=== PATIENT | male | born 1995 | race Caucasian/White ===

== ENCOUNTER 2020-08-23 10:58 | Emergency (ER) | payer OTHER, SELFPAY ==
--- NOTE | 2020-08-23 10:56 | ECG_ITS ---
APPROVED REPORT Exam: Resting ECG HR:60 bpm ECG Measurements Heart Rate 60 AXES AL 158 P 37 QRSd 92 QRS 44 QT 402 T 31 QTc 402 Conclusion Normal sinus rhythm Left atrial abnormality Borderline ECG Electronically signed by : Sergio Tsai, 08/23/2020 21:06:34
[2020-08-23 10:58] VITALS: BP 124/81; BP 160/99; PULSE 60; PULSE 67; RESP 13; RESP 16; TEMP 36.9; O2SAT 93; O2SAT 98; BMI 29.1
--- NOTE | 2020-08-23 11:01 | XR_ITS ---
PROCEDURE: XR CHEST 2V CLINICAL HISTORY: cp Chest pain, hypertension COMPARISON: No exams were available for comparison FINDINGS: The cardiomediastinal silhouette and pulmonary vascularity are within normal limits. The lungs are clear without infiltrates, suspicious nodules, or pleural effusions. No acute bony abnormalities. IMPRESSION: No acute findings. Dictated by: Kwaku Andrew MD 08/23/2020 14:40 Kwaku Andrew MD in [place] 08/23/2020 14:40
--- NOTE | 2020-08-23 11:12 | HMH.EDCP ---
ED Disposition Clinical Impression: Atypical chest pain Disposition: Home, Self-Care Condition on Discharge: Fair Instructions: DI for Atypical Chest Pain Additional Instructions: Glad to let you know that we have checked your labs including CBC CMP and cardiac enzymes and they are normal we have also checked chest x-ray as well as EKG and no acute findings are noted please follow-up as needed Time of Disposition: 12:07 - Critical Care Critical Care Time: No Attestation: On , the high probability of a clinically significant, sudden or life threatening deterioration of the following system(s) required my full and direct attention, intervention and personal management. The time I documented below is in addition to time spent performing reported procedures but includes the following listed in this critical care notation. Medical Decision Making - Medical Records Medical records reviewed: Yes: I reviewed the patient's medical records. MR Comment: male here with his mother with a complaint of chest pain for about a week and shortness of breath he has had no exposure to coronavirus he has high functioning autism mom also states that he started new medication prazosin and was wondering if the chest pain is due to it; mom also states he gets anxious easily. Viewed patient's EKG and it shows no acute changes chest x-ray was also reviewed and it shows normal findings labs including CBC CMP and cardiac enzymes are also normal reassurance has been given to the young man as well as his mother; lysed that they are always welcome to return in case of any concerns - Saurabh Inquiry Pt receiving controlled substance: No Vital Signs: 08/23/20 10:58 08/23/20 11:28 08/23/20 11:30 Temperature 98.5 F Temperature Source Oral Pulse Rate [Radial] 60 60 68 Respiratory Rate 13 10 L 17 Blood Pressure [Right Arm] 124/81 124/78 118/79 Blood Pressure Mean [Right Arm] 95 93 92 Blood Pressure Source [Right Arm] Automatic Cuff Automatic Cuff Automatic Cuff Blood Pressure Position [Right Arm] Sitting Sitting Sitting 02 Sat by Pulse Oximetry 93 L 93 L 95 Oxygen Delivery Method Room Air Room Air Room Air - Lab Data Lab results reviewed: Yes: I reviewed the patient's lab results. Lab Results 08/23/20 11:07: Sodium 142, Potassium 4.3, Chloride 103, Carbon Dioxide 26, Anion Gap 17.3 H, BUN 12, Creatinine 1.00, Estimated Creat Clear 156, Estimated GFR 91, Est GFR ( Amer) 110, Glucose 125 H, Calcium 10.3 H, Troponin I < 0.01 08/23/20 11:07: WBC 8.3, RBC 6.00, Hgb 18.0, Hct 54.3 H, MCV 90.5, MCH 30.0, MCHC 33.1, RDW 13.5, Plt Count 419, MPV 8.3, Neut % (Auto) 62.9, Lymph % (Auto) 28.6, Hendry % (Auto) 6.3, Eos % (Auto) 1.8, Baso % (Auto) 0.5, Neut # (Auto) 5.2, Lymph # (Auto) 2.4, Hendry # (Auto) 0.5, Eos # (Auto) 0.2, Baso # (Auto) 0.0 Result diagrams: 08/23/20 11:07 08/23/20 11:07 Orders (Tests/Meds): ORDERS Category Date Time Status CXR 2 view (NOT portable) [XR chest 2V] Stat Exams 08/23/20 11:01 Taken Troponin I Q3H Lab 08/23/20 14:00 Ordered Troponin I Q3H Lab 08/23/20 17:00 Ordered Chest Pain HPI - General Chief Complaint: Chest Pain Stated Complaint: chest pain Time Seen by Provider: 08/23/20 11:00 Mode of Arrival: Ambulatory Source of Information: Patient, Parent(s) Limitations: No Limitations Description of Symptoms (Recalled from ER Triage Doc. by RN): to ed per pvt car with c/o chest pain radiating to back, +sob, +nausea, +diphoresis x 1 week. pt states sob worse with exertion, pain worse when lying flat. denies cough, fever. states started new med 1 month ago mother states called psych sunday and told to stop meds. cpta none - History of Present Illness HPI narrative: male here with his mother with a complaint of chest pain for about a week and shortness of breath he has had no exposure to coronavirus he has high functioning autism mom also states that he started new medication prazosin and wa
--- NOTE | 2020-08-23 11:13 | PC.NURSE ---
pt going to radiology
[2020-08-23 11:20] LABS: Basophils % 0.5 % (0.1-2.0); Eosinophils # 0.2 K/mm3 (0.0-0.4); Eosinophils % 1.8 % (0.1-12.0); Hematocrit 54.3 % (42.0-52.0); Lymphocytes # 2.4 K/mm3 (0.7-4.5); Lymphocytes % 28.6 % (10-50); Mean Corpuscular HGB Conc 33.1 g/dL (31.8-35.4); Mean Corpuscular Volume 90.5 fl (80-94); Mean Platelet Volume 8.3 fl (7.4-10.4); Monocytes # 0.5 K/mm3 (0.1-1.0); Monocytes % 6.3 % (1.7-9.3); Neutrophils # 5.2 K/mm3 (1.8-7.8); Neutrophils % 62.9 % (37.0-80.0); Platelet Count 419 K/mm3 (142-424); Red Cell Distribution Width 13.5 % (11.5-17.5); White Blood Count 8.3 K/mm3 (4.8-10.8)
[2020-08-23 11:21] LABS: Chloride 103 mmol/L (98-107); Potassium 4.3 mmoL/L (3.5-5.1); Sodium 142 mmol/L (136-145)
--- NOTE | 2020-08-23 11:21 | PC.NURSE ---
pt returning to room from radiology
[2020-08-23 11:24] LABS: Blood Urea Nitrogen 12 mg/dl (9-20); Creatinine Clearance Estimated 156 mL/min (50-200); Estimated Glomerular Filt Rate 91 ml/min (>60); GFR (African American) 110 ML/MIN (>60)
[2020-08-23 11:25] LABS: Anion Gap 17.3 mEq/L (5-15); Calcium 10.3 mg/dl (8.4-10.2); Carbon Dioxide 26 mmol/L (22.0-30.0); Glucose 125 mg/dl (74-100)
[2020-08-23 11:28] VITALS: BP 124/78; PULSE 60; RESP 10; O2SAT 93
[2020-08-23 11:30] VITALS: BP 118/79; PULSE 68; RESP 17; O2SAT 95
[2020-08-23 11:43] LABS: Troponin I < 0.01 ng/ml (0.00-0.034)
[2020-08-23 12:00] VITALS: BP 120/83; PULSE 60; RESP 21; O2SAT 95
--- NOTE | 2020-08-23 12:01 | PC.NURSE ---
MD at bedside updating patient
[2020-08-23 12:15] VITALS: BP 120/83; PULSE 61; RESP 18; TEMP 36.9; O2SAT 95
== END 2020-08-23 12:15 | disposition home or self-care (01) ==
PROVIDERS: Emergency Provider Emergency Medicine; PCP Emergency Medicine
DX: R07.89 Other chest pain (principal); F41.8 Other specified anxiety disorders; I10 Essential (primary) hypertension; F84.0 Autistic disorder; Z79.899 Other long term (current) drug therapy
CPT/HCPCS: 71046; 80048; 84484; 85025; 93005; 99284

== ENCOUNTER → 2020-09-22 14:13 | Outpatient (CLI) | payer OTHER, SELFPAY ==
--- NOTE | 2020-09-22 14:14 | CA_ITS ---
APPROVED REPORT EXAM: Comprehensive 2D, Doppler, and color-flow Echocardiogram Sheet Rock Taper Helper: Belgica Galindo RT(R) Ht: 6 ft 0 in Wt: 223lbs BSA: 2.23 BP: 138/92 mmHg Indications: CP, HTN, SOB, GERD 2D Dimensions LVOT 2.08 cm (M/F) 1.5-2.5 M-Mode Dimensions RVDd 2.04 cm (0.9-2.6) LA Diam 3.91 cm (1.9-4.0) LVDd 5.17 cm (3.5-5.7) Ao Diam 2.98 cm (2.0-3.7) LVDs 3.41 cm (3.5-5.7) IVSd 1.08 cm (0.6-1.1) PWd 0.79 cm (0.6-1.1) EF (Teich) 62.60% FS 34.00% EDV (Teich) 127.80 mL ESV (Teich) 47.80 mL LV Diastology E Decel Time 230.00 (160-240 msec) E/A Ratio 1.8 MED E' 10.00 (< 7 cm/sec) E'/MED E' Ratio 8.16 (>14) LAT E' 14.20 (<10 cm/sec) E/LAT E' Ratio 5.75 (>14) Mitral Valve MV E Max Tan. 82.00 (40-130 cm/s) MV A Velocity 46.00 (40-130 cm/s) E/A Ratio 1.79 MV Decel. Time 230.00 (160-240 ms) MV PHT 67.00 ms Left Ventricle Left atrium is normal size, left ventricle is normal size, there is no concentric left ventricular hypertrophy, visually estimated ejection fraction 55% with no regional wall motion abnormality, diastolic parameters are within normal range. Right Ventricle Right atrium and right ventricle are normal size and contractility. Aortic Valve Aortic valve is grossly normal, there is no aortic stenosis or aortic insufficiency. Mitral Valve Mitral valve is grossly normal, there is trace mitral regurgitation. Tricuspid Valve Tricuspid valve grossly normal, there is trace tricuspid regurgitation. Pulmonic Valve Pulmonic valve is poorly visualized. Great Vessels Aortic root is normal size. Pericardium No significant pericardial effusion noted. Conclusion 1. Normal left ventricular size, preserved left ventricular systolic function, visually estimated ejection fraction 55% with no regional wall motion abnormality, diastolic parameters are within normal range. 2. Trace mitral and tricuspid regurgitation. 3. No significant pericardial effusion noted. Electronically signed by : Jass Tinsley, 09/23/2020 12:58:36
== END ==
PROVIDERS: PCP Emergency Medicine; Visit Provider Nurse Practitioner Family
DX: R07.89 Other chest pain (principal)
CPT/HCPCS: 93306

== ENCOUNTER → 2021-01-26 13:36 | Outpatient (CLI) | payer OTHER, SELFPAY ==
--- NOTE | 2021-01-26 13:40 | XR_ITS ---
PROCEDURE: XR KNEE LT 4V CLINICAL INDICATION: LT knee pain COMPARISON: CR [id number] KNEE-4 OR 5 VIEWS-RT from 05/07/2015 CR [id number] KNEE-4 OR 5 VIEWS-LT from 05/07/2015 FINDINGS: No fracture or dislocation. No lytic or blastic change. There is normal mineralization. There are minimal osteoarthritic changes with minimal spurring the intercondylar region of the lateral femoral condyle and of the tibial spine. The joint spaces however are well preserved. Other findings:None. IMPRESSION: Minimal spurring of the intercondylar notch and tibial spine Dictated by: Kwaku Andrew MD 01/26/2021 14:18 Kwaku Andrew MD in [place] 01/26/2021 14:18
== END ==
PROVIDERS: PCP Nurse Practitioner Family; Visit Provider Orthopaedic Surgery
DX: M25.562 Pain in left knee (principal)
CPT/HCPCS: 73564

== ENCOUNTER 2021-02-17 15:00 | Outpatient (RCR) | payer OTHER, SELFPAY ==
--- NOTE | 2021-02-01 14:53 | HMH.PTOPEV ---
PT Outpatient Evaluation Rehab PT Outpatient Evaluation Start: 02/01/21 14:33 Freq: Status: Active Protocol: Document 02/01/21 14:33 JOSEJOAQUÍN (Rec: 02/01/21 14:53 WILFRID [id number]) Electronically Signed By Bunny Monahan, PT 02/01/21 14:33 Outpatient Therapy Subjective History Subjective History Patient is a 25 year old male presenting to outpatient PT with reports of L knee pain. 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 Patient reports previous hx of L knee meniscus repair in 2006. Symptoms have persisted since surgery. Patient reports mulitple patellar subluxations over the past few years. Comorbidities include hx of HTN, depression, L eye sx/blindness. Chief Complaint Pain,Swelling,Weakness Symptom Type Sharp,Burning Symptoms Relieved By Rest/Positioning,Ice,OTC Meds Symptoms Aggravated By Standing,Physical Activity, Walking Prior Functional Limitations Standing,Walking Current Functional Limitations Housework,Standing,Recreation Activity,Walking Symptom Description Constant but Variable Level of pain today (0-10) 6 Pain scale - at its best (0-10) 5 Pain scale - at its worst (0-10) 9 Hip/Knee Eval Gait Observation General Gait Pattern Observation Antalgic Gait,Decrease Weight Bear (L) Palpation Tenderness left Knee Palpation Finding Tenderness Knee Palpation Overall Comment medial joint line/vastus medialis 3/4 MMT bilateral Hip Flexion Strength Grade 4 Good Hip Abduction Strength Grade 4 Good Hip Adduction Strength Grade 4 Good Hip Extension Strength Grade 4 Good Hip External Rotation Strength Grade 4- Good- Hip Internal Rotation Strength Grade 4- Good- Knee Extension Strength Grade 4 Good Knee Flexion Strength Grade 4 Good ROM left Hip ROM Reason Not Measured Within Functional Limits Knee ROM Reason Not Measured Within Functional Limits Special Tests Knee Valgus Stress Test Negative Left Knee Varus Stress Test Negative Left Knee Juanita Test Positive Left Patellar Compression Test Positive Left Outpatient Therapy Assessment Impairments Problems/Impairmments Palpation Tenderness,Impaired Strength,Impaired Walking, Impaired Angel Luis
== END 2021-04-20 14:38 | disposition home or self-care (01) ==
LOC: PT 15:00
PROVIDERS: PCP Nurse Practitioner Family; Visit Provider Orthopaedic Surgery
DX: M22.42 Chondromalacia patellae, left knee (principal); M17.12 Unilateral primary osteoarthritis, left knee
CPT/HCPCS: 97014; 97033; 97035; 97110; 97163; G0283

== ENCOUNTER 2021-06-12 16:39 | Emergency (ER) | payer OTHER, SELFPAY ==
[2021-06-12 17:15] VITALS: BP 125/73; PULSE 87; RESP 18; TEMP 37; O2SAT 96; BMI 32.5
[2021-06-12 17:20] VITALS: BP 125/73; PULSE 87; RESP 18; TEMP 37; O2SAT 96; BMI 32.5
--- NOTE | 2021-06-12 17:39 | HMH.EDUTC ---
[facility] [place] Disposition Clinical Impression: Strep sore throat Otitis media Qualifiers: Otitis media type: suppurative Chronicity: acute Laterality: left Recurrence: non-recurrent Spontaneous tympanic membrane rupture: without spontaneous rupture Qualified Code(s): H66.002 - Acute suppurative otitis media without spontaneous rupture of ear drum, left ear Disposition: Home, Self-Care Condition on Discharge: Good Instructions: DI for Strep Throat, Middle Ear Infection Additional Instructions: Start antibiotic as soon as possible and be sure to take as ordered for full length of time even though he should start feeling better in 24-48 hours. Tylenol or Motrin as needed for pain or fever Encourage fluids, water, Gatorade, Powerade, Pedialyte if /toddler/child Warm compresses often helps when placed over ear Return immediately for new or worsening symptoms no noticeable improvement in 48-72 hours and in 10-14 days to ensure the ears are return to baseline. Follow-up with primary care Start antibiotics today be sure to take it as ordered with the full length of time although you should start feeling better in 24-48 hours. Change toothbrush and toothpaste 24-48 hours after starting antibiotics Tylenol or Motrin as needed for fever or pain Encourage fluids, water, Gatorade, Powerade, try cold fluids, popsicles, ice cream will make it feel better You are contagious for 24 hours. Avoid kissing anyone, no eating or drinking after anyone. You are contagious. Follow-up the ER for new or worsening symptoms or no noticeable improvement over the next 24-48 hours. Follow-up with PCP this week. Prescriptions: Amoxicillin [Amoxicillin 500mg Tab] 500 mg PO BID 10 Days #20 tab Prescription Printed Referrals: Hardeep Rodríguez MD [Primary Care Provider] - Time of Disposition: 17:59 Medical Decision Making - Saurabh Inquiry Pt receiving controlled substance: No Vital Signs: 06/12/21 17:15 06/12/21 17:20 Temperature 98.6 F 98.6 F Temperature Source Oral Oral Pulse Rate [Right] 87 87 Respiratory Rate 18 18 Blood Pressure [Right Arm] 125/73 125/73 Blood Pressure Mean [Right Arm] 90 90 Blood Pressure Source [Right Arm] Automatic Cuff Blood Pressure Position [Right Arm] Sitting 02 Sat by Pulse Oximetry 96 96 Oxygen Delivery Method Room Air Room Air Orders (Tests/Meds): ORDERS Category Date Time Status Covid-19 Nasal PCR ([facility]) Routine Lab 06/12/21 17:33 Ordered [facility] [place] HPI - General Chief complaint: Urgent Treatment Center Stated complaint: ears, congestion Time Seen by Provider: 06/12/21 17:39 Mode of Arrival: Ambulatory Source of Information: Patient Limitations: No Limitations Description of Symptoms (Recalled from Triage Doc. by RN): C/O BILATERAL EAR PAIN X1 WEEK, SORE THROAT STARTING YESTERDAY. - History of Present Illness Provider Complaint: 26 yr old male presents for rt ear pain and sore throat for 2 days. - Related Data Previous Rx's Medication Instructions Recorded escitalopram oxalate 20 mg tablet 20 mg PO DAILY #90 tab 08/26/20 propranolol 10 mg tablet See Rx Instructions .ROUTE 02/24/21 .COMPLEX #180 unspecified famotidine 20 mg tablet 20 mg PO DAILY #30 tab 03/09/21 Amoxicillin [Amoxicillin 500mg Tab] 500 mg PO BID 10 Days #20 tab 06/12/21 Allergies Allergy/AdvReac Type Severity Reaction Status Date / Time No Known Allergies Allergy Verified 01/26/21 14:31 [facility] History - Hepatitis A Screen Attestation statement:: This patient has been screened for Hepatitis A risk factors. I have reviewed the patient's past medical history: Yes Medical History: Reports:: Anxiety, Depression, Hypertension Other Surgeries: Yes: No Previous Surgery Amputation: No Fractures: No - Social History Smoking Status: Never smoker Alcohol Intake: never Substance Use Type: denies use Occupational Status: unemployed Housing: house Household Members: family - Psychiatric History Pschychiatric His
[2021-06-12 17:52] LABS: UTC Strep Screen (Rapid) Positive (Negative)
[2021-06-12 18:01] VITALS: BP 125/73; PULSE 87; RESP 18; TEMP 37; O2SAT 96
--- NOTE | 2021-06-13 10:10 | PC.NURSE ---
PATIENT NOTIFIED OF POSITIVE COVID TEST AT THIS TIME
== END 2021-06-12 18:08 | disposition home or self-care (01) ==
PROVIDERS: Emergency Provider Nurse Practitioner Family; PCP Emergency Medicine
DX: J02.0 Streptococcal pharyngitis (principal); U07.1 COVID-19; H66.002 Acute suppurative otitis media without spontaneous rupture of ear drum, left ear; I10 Essential (primary) hypertension; F41.8 Other specified anxiety disorders
CPT/HCPCS: 87880; 99203; G0463; U0003

== ENCOUNTER → 2021-07-10 16:15 | Outpatient (CLI) | payer OTHER, SELFPAY ==
--- NOTE | 2021-07-10 16:18 | XR_ITS ---
PROCEDURE INFORMATION: Exam: XR Chest Exam date and time: 07/10/2021 4:18 PM Age: 26 years old Clinical indication: Patient HX: Dyspnea after covid. TECHNIQUE: Imaging protocol: XR of the chest. Views: 2 views. COMPARISON: CR XR CHEST 2V 08/23/2020 11:07 AM FINDINGS: Lungs: Unremarkable. No focal consolidation. Pleural spaces: Unremarkable. No pleural effusion. No pneumothorax. Heart/Mediastinum: Unremarkable. No cardiomegaly. Bones/joints: Unremarkable. IMPRESSION: No acute findings.
== END ==
PROVIDERS: PCP Emergency Medicine; Visit Provider Family Medicine
DX: R06.00 Dyspnea, unspecified; R05.9 Cough, unspecified; Z86.16 Personal history of COVID-19
CPT/HCPCS: 71046

== ENCOUNTER → 2021-08-08 13:23 | Outpatient (CLI) | payer OTHER, SELFPAY ==
--- NOTE | 2021-08-08 13:23 | CT_ITS ---
PROCEDURE: CT HEAD/BRAIN WO CON CLINICAL INDICATION: vertigo COMPARISON: No exams were available for comparison TECHNIQUE: Axial images obtained. All CT scans at the facility use one or more dose reduction, viz: automated exposure control, ma/kV adjustment per patient size (including targeted exams where dose is matched to indication, i.e. head), or iterative reconstruction technique. FINDINGS: No midline shift, mass effect, intracranial hemorrhage, hydrocephalus, or extra-axial fluid collection is evident. The calvarium has an unremarkable appearance. There is opacification of the right mastoid sinus. There is mild mucosal thickening of the ethmoid sinuses. Small retention cyst is present in the right sphenoid sinus anteriorly at 4 mm. IMPRESSION: No acute intracranial finding Right mastoid and mild paranasal sinus disease. Dictated by: Kwaku Andrew MD 08/08/2021 17:50 Kwaku Andrew MD in [place] 08/08/2021 17:50
== END ==
PROVIDERS: PCP Emergency Medicine; Visit Provider Family Medicine
DX: R42 Dizziness and giddiness (principal)
CPT/HCPCS: 70450

== ENCOUNTER 2021-10-02 23:25 | Emergency (ER) | payer OTHER, SELFPAY ==
[2021-10-02 23:27] VITALS: BP 121/70; PULSE 109; RESP 20; TEMP 36.8; O2SAT 99; BMI 32.5
--- NOTE | 2021-10-03 00:16 | HMH.EDNVD ---
ED Disposition Clinical Impression: Enteritis due to Norovirus, COVID-19 Disposition: Home, Self-Care Condition on Discharge: Good Instructions: DI for COVID-19 (Suspected or Confirmed ), DI for Norovirus Infection Additional Instructions: fluids and see pcp for follow up Referrals: Hardeep Rodríguez MD [Primary Care Provider] - - Critical Care Critical Care Time: No Attestation: On 10/02/21, the high probability of a clinically significant, sudden or life threatening deterioration of the following system(s) required my full and direct attention, intervention and personal management. The time I documented below is in addition to time spent performing reported procedures but includes the following listed in this critical care notation. Medical Decision Making - Medical Records Medical records reviewed: Yes: I reviewed the patient's medical records. - Saurabh Inquiry Pt receiving controlled substance: No Vital Signs: 10/02/21 23:27 Temperature 98.2 F Temperature Source Oral Pulse Rate [Apical] 109 H Respiratory Rate 20 Blood Pressure [Right Arm] 121/70 Blood Pressure Mean [Right Arm] 87 Blood Pressure Source [Right Arm] Automatic Cuff Blood Pressure Position [Right Arm] Sitting 02 Sat by Pulse Oximetry 99 Oxygen Delivery Method Room Air - Lab Data Lab results reviewed: Yes: I reviewed the patient's lab results. Lab Results 10/03/21 00:11: Stl Aeromonas (PCR) Not detected, Stl C. cayetanensis PCR Not detected, Stool Rotavirus (PCR) Not detected, Stl Adenov F 40/41 PCR Not detected, Stool Astrovirus (PCR) Not detected, Stool Campylobacter PCR Not detected, Stl C.difficile Tox PCR Not detected, Stool Cryptosporidium PCR Not detected, Stl E.coli Shiga Tox PCR Not detected, Stool E coli O157 PCR Not detected, Stl Enterotoxigenic E PCR Not detected, Stool EPEC (PCR) Not detected, Stool EAEC (PCR) Not detected, Stl E. histolytica PCR Not detected, Stool Giardia Lamblia PCR Not detected, Stool Salmonella PCR Not detected, Stool Sapovirus (PCR) Not detected, Stl P. shigelloides PCR Not detected, Stl Shigella/EIEC PCR Not detected, St Y.enterocolitica PCR Not detected, Stool Vibrio (PCR) Not detected, Stl Vibrio cholerae PCR Not detected, Stl Norovirus GI/GII PCR Detected A, SARS-CoV-2 (PCR) Detected A, Influenza A Untype (PCR) Not detected, Influenza Type B (PCR) Not detected 10/03/21 00:11: WBC 9.1, RBC 5.61, Hgb 17.1, Hct 51.9, MCV 92.4, MCH 30.4, MCHC 32.9, RDW 13.6, Plt Count 347, MPV 9.0, Neut % (Auto) 79.8, Lymph % (Auto) 8.8 L, Worth % (Auto) 8.1, Eos % (Auto) 1.4, Baso % (Auto) 1.9, Neut # (Auto) 7.3, Lymph # (Auto) 0.8, Worth # (Auto) 0.7, Eos # (Auto) 0.1, Baso # (Auto) 0.2, ESR 4 10/03/21 00:11: Sodium 135 L, Potassium 3.6, Chloride 98, Carbon Dioxide 24, Anion Gap 16.6 H, BUN 13, Creatinine 1.10, Estimated Creat Clear 157, Estimated GFR 81, Est GFR ( Amer) 98, Glucose 112 H, Calcium 9.8, Total Bilirubin 0.8, AST 41, ALT 56, Alkaline Phosphatase 53, C-Reactive Protein 18.7 H, Total Protein 7.7, Albumin 4.9, Globulin 2.8, Albumin/Globulin Ratio 1.8, Amylase 63, Lipase 96, Procalcitonin 0.247 Result diagrams: 10/03/21 00:11 10/03/21 00:11 Orders (Tests/Meds): ED MEDICATIONS Generic Name Dose Route Start Last Admin Trade Name Freq PRN Reason Stop Dose Admin Sodium Chloride 1,000 mls @ 999 mls/hr 10/03/21 00:30 10/03/21 00:21 Sod Chlor 0.9% 1000ml Bag IV 10/03/21 01:30 999 mls/hr .Q1H1M TATI Administration Discontinued Medications Generic Name Dose Route Start Last Admin Trade Name Freq PRN Reason Stop Dose Admin Iopamidol 75 ml 10/03/21 00:43 10/03/21 00:44 Iopamidol-370 (76%);100ml Bottle IV 10/03/21 00:44 75 ml ONCE ONE Administration Ondansetron HCl 4 mg 10/03/21 00:19 10/03/21 00:21 Ondansetron 4mg/2ml Vial IV 10/03/21 00:20 4 mg ONCE ONE Administration Sodium Chloride 10 ml 10/03/21 00:43 10/03/21 00:44 Sodium Chloride 0.9% 10ml Syr (Rad Only) IV 12
--- NOTE | 2021-10-03 00:18 | CT_ITS ---
PROCEDURE INFORMATION: Exam: CT Abdomen And Pelvis With Contrast Exam date and time: 10/03/2021 12:18 AM Age: 26 years old Clinical indication: Vomiting and other: Diarrhea generalized abdomen pain; Additional info: Abdominal pain diarrhea TECHNIQUE: Imaging protocol: Computed tomography of the abdomen and pelvis with contrast. Total images: 325 Radiation optimization: All CT scans at this facility use at least one of these dose optimization techniques: automated exposure control; mA and/or kV adjustment per patient size (includes targeted exams where dose is matched to clinical indication); or iterative reconstruction. Contrast material: ISOVUE; Contrast volume: 75 ml; Contrast route: IV; COMPARISON: LEAJW/OLT MRI-LOW EXT ANY JOINT W/O-LT 08/25/2016 2:01 PM FINDINGS: Lungs: Visualized lung bases are clear. Heart: Heart size normal. Mediastinal space: The visualized distal esophagus is largely contracted without gross abnormality. Liver: Mild fatty infiltration of the liver. Normal contour. No mass lesions. No intrahepatic biliary ductal dilatation. Gallbladder and bile ducts: Normal. No calcified stones. No ductal dilation. Pancreas: Normal. No inflammatory changes or ductal dilation. Spleen: Normal. No splenomegaly. Adrenal glands: Normal. No adrenal mass. Kidneys and ureters: No acute abnormalities. No hydronephrosis or hydroureter. No urinary tract stones are identified. Stomach and bowel: The stomach is unremarkable. Mildly excessive fluid content in the distal small bowel and moderately excessive fluid content in the colon, consistent with diarrheal state and mild enterocolitis. No small bowel dilatation or transition point suggestive of bowel obstruction was identified. No evidence of perforation or abscess. Appendix: The appendix is normal in caliber and demonstrates no evidence of appendicitis. Intraperitoneal space: No free fluid or air. Vasculature: No acute process. No abdominal aortic aneurysm. Lymph nodes: No adenopathy. Urinary bladder: The urinary bladder is largely contracted without gross abnormality. Reproductive: Mild prostate calcifications. Bones/joints: No acute osseous abnormalities. Soft tissues: Small fatty bilateral inguinal hernias with no asociated bowel herniation or strangulation. IMPRESSION: 1. Findings consistent with mild enterocolitis and diarrheal state. No evidence of bowel obstruction perforation. 2. Small fatty bilateral inguinal hernias with no asociated bowel herniation or strangulation. 3. Mild fatty infiltration of the liver.
[2021-10-03 00:49] LABS: Coronavirus 19, PCR Detected (NotDetected)
[2021-10-03 00:50] LABS: Influenza A, PCR Not Detected (NotDetected); Influenza B, PCR Not Detected (NotDetected)
[2021-10-03 01:37] LABS: Basophils # 0.2 K/mm3 (0-0.2); Basophils % 1.9 % (0.1-2.0); Eosinophils # 0.1 K/mm3 (0.0-0.4); Eosinophils % 1.4 % (0.1-12.0); Hematocrit 51.9 % (42.0-52.0); Hemoglobin 17.1 g/dL (14.1-18.0); Lymphocytes # 0.8 K/mm3 (0.7-4.5); Lymphocytes % 8.8 % (10-50); Mean Corpuscular HGB Conc 32.9 g/dL (31.8-35.4); Mean Corpuscular Hemoglobin 30.4 pg (27.0-31.2); Mean Corpuscular Volume 92.4 fl (80-94); Monocytes # 0.7 K/mm3 (0.1-1.0); Monocytes % 8.1 % (1.7-9.3); Neutrophils # 7.3 K/mm3 (1.8-7.8); Neutrophils % 79.8 % (37.0-80.0); Platelet Count 347 K/mm3 (142-424); Red Blood Count 5.61 M/mm3 (4.60-6.20); Red Cell Distribution Width 13.6 % (11.5-17.5); White Blood Count 9.1 K/mm3 (4.8-10.8)
[2021-10-03 01:43] LABS: Alanine Aminotransferase 56 U/L (12-78); Albumin Level 4.9 g/dl (3.5-5.0); Albumin/Globulin Ratio 1.8 (1.1-1.8); Alkaline Phosphatase 53 U/L (38-126); Amylase 63 U/L (30-110); Anion Gap 16.6 mEq/L (5-15); Aspartate Amino Transferase 41 U/L (17-59); Bilirubin,Total 0.8 mg/dl (0.2-1.3); Blood Urea Nitrogen 13 mg/dl (9-20); Calcium 9.8 mg/dl (8.4-10.2); Carbon Dioxide 24 mmol/L (22.0-30.0); Chloride 98 mmol/L (98-107); Creatinine Clearance Estimated 157 mL/min (50-200); Estimated Glomerular Filt Rate 81 ml/min (>60); GFR (African American) 98 ML/MIN (>60); Globulin 2.8 g/dL (1.3-3.2); Glucose 112 mg/dl (74-100); Lipase 96 U/L (23-300); Potassium 3.6 mmoL/L (3.5-5.1); Sodium 135 mmol/L (136-145); Total Protein,Serum 7.7 g/dl (6.3-8.2)
[2021-10-03 01:48] LABS: C-Reactive Protein 18.7 mg/L (0-4)
[2021-10-03 01:55] LABS: Adenovirus F 40/41, stool Not Detected (NotDetected); Astrovirus Not Detected (NotDetected); Campylobacter Not Detected (NotDetected); Clostridium Difficile A/B, PCR Not Detected (NotDetected); Cryptosporidium Not Detected (NotDetected); Cyclospora Cayetanesis Not Detected (NotDetected); Entamoeba histolytica Not Detected (NotDetected); Enteroaggregative E coli Not Detected (NotDetected); Enteropathogenic E coli Not Detected (NotDetected); Enterotoxigenic E coli Not Detected (NotDetected); Giardia lamblia Not Detected (NotDetected); Plesimonas Shigalloides, PCR Not Detected (NotDetected); Salmonella, PCR Not Detected (NotDetected); Shiga-like toxin E coli Not Detected (NotDetected); Shigella Enterovasive E coli Not Detected (NotDetected); Vibrio Cholerae Not Detected (NotDetected); Vibrio, PCR Not Detected (NotDetected); Yersinia Entercolitica, PCR Not Detected (NotDetected)
[2021-10-03 01:56] LABS: Norovirus Detected (NotDetected); Rotavirus A Not Detected (NotDetected); Sapovirus Not Detected (NotDetected)
[2021-10-03 02:02] LABS: Procalcitonin 0.247 ng/mL (0.0-2.0)
[2021-10-03 02:04] LABS: Erythrocyte Sedimentation Rate 4 mm/hr (0-15)
[2021-10-03 02:12] VITALS: BP 115/71; PULSE 80; RESP 17; TEMP 36.8; O2SAT 98
== END 2021-10-03 02:20 | disposition home or self-care (01) ==
PROVIDERS: Emergency Provider Emergency Medicine; PCP Emergency Medicine
DX: A08.11 Acute gastroenteropathy due to Norwalk agent (principal); U07.1 COVID-19; F41.8 Other specified anxiety disorders
CPT/HCPCS: 74177; 80053; 82150; 83690; 84145; 85025; 85651; 86140; 87507; 96365; 96375; 99283; C9803; J2405; Q9967; U0003; U0005

== ENCOUNTER 2024-02-06 18:00 | Outpatient (CLI) | payer OTHER, SELFPAY ==
[2024-02-06 19:04] LABS: Basophils # 0.1 K/mm3 (0-0.2); Basophils % 0.7 % (0.1-2.0); Eosinophils # 0.3 K/mm3 (0.0-0.4); Eosinophils % 4.8 % (0.1-12.0); Hematocrit 48.8 % (42.0-52.0); Hemoglobin 15.8 g/dL (14.1-18.0); Lymphocytes # 2.2 K/mm3 (0.7-4.5); Lymphocytes % 34.4 % (10-50); Mean Corpuscular HGB Conc 32.4 g/dL (31.8-35.4); Mean Corpuscular Hemoglobin 30.7 pg (27.0-31.2); Mean Corpuscular Volume 94.8 fl (80-94); Mean Platelet Volume 9.9 fl (7.4-10.4); Monocytes # 0.5 K/mm3 (0.1-1.0); Neutrophils # 3.3 K/mm3 (1.8-7.8); Neutrophils % 52.1 % (37.0-80.0); Platelet Count 353 K/mm3 (142-424); Red Blood Count 5.15 M/mm3 (4.60-6.20); Red Cell Distribution Width 13.8 % (11.5-17.5); White Blood Count 6.4 K/mm3 (4.8-10.8)
[2024-02-06 19:51] LABS: Alanine Aminotransferase 50 U/L (12-78); Albumin Level 4.5 g/dl (3.5-5.0); Albumin/Globulin Ratio 1.7 (1.1-1.8); Alkaline Phosphatase 67 U/L (38-126); Anion Gap 14.6 mEq/L (5-15); Aspartate Amino Transferase 38 U/L (17-59); Bilirubin,Total 0.5 mg/dl (0.2-1.3); Blood Urea Nitrogen 10 mg/dl (9-20); Calcium 9.7 mg/dl (8.4-10.2); Carbon Dioxide 24 mmol/L (22.0-30.0); Chloride 107 mmol/L (98-107); Chol/HDL Ratio 7.4 (1-3.5); Cholesterol 253 mg/dl (140-200); Estimated Glomerular Filt Rate 115 ml/min (>60); GFR (African American) 139 ML/MIN (>60); Globulin 2.6 g/dL (1.3-3.2); Glucose 128 mg/dl (74-100); HDL Cholesterol 34 mg/dl (40-60); Potassium 4.6 mmoL/L (3.5-5.1); Sodium 141 mmol/L (136-145); Total Protein,Serum 7.1 g/dl (6.3-8.2); Triglycerides 345 mg/dl (30-150); VLDL Cholesterol 69 mg/dL (0-40)
[2024-02-06 20:08] LABS: 25-OH Vitamin D, Total 21.7 ng/mL (30-100)
[2024-02-06 20:14] LABS: Direct LDL Cholesterol 183.96 mg/dL (100-129)
[2024-02-06 20:19] LABS: Thyroid Stimulating Hormone 1.42 uIU/mL (0.465-4.68)
== END 2024-02-06 23:59 | disposition home or self-care (01) ==
LOC: LAB.DROPOF 02-07 08:42
PROVIDERS: Visit Provider Family Medicine
DX: E66.3 Overweight (principal); Z68.34 Body mass index [BMI] 34.0-34.9, adult; F84.0 Autistic disorder; F84.5 Asperger's syndrome; F32.9 Major depressive disorder, single episode, unspecified; F41.1 Generalized anxiety disorder; R73.03 Prediabetes; R00.2 Palpitations; Z79.899 Other long term (current) drug therapy
CPT/HCPCS: 80053; 80061; 82306; 84443; 85025

== ENCOUNTER 2024-05-02 12:27 | Outpatient (CLI) | payer OTHER, SELFPAY ==
[2024-05-02 18:49] LABS: Alanine Aminotransferase 48 U/L (12-78); Albumin Level 4.5 g/dl (3.5-5.0); Albumin/Globulin Ratio 1.5 (1.1-1.8); Alkaline Phosphatase 72 U/L (38-126); Anion Gap 13.4 mEq/L (5-15); Aspartate Amino Transferase 33 U/L (17-59); Bilirubin,Total 0.6 mg/dl (0.2-1.3); Blood Urea Nitrogen 17 mg/dl (9-20); Calcium 10.4 mg/dl (8.4-10.2); Carbon Dioxide 27 mmol/L (22.0-30.0); Chloride 103 mmol/L (98-107); Chol/HDL Ratio 5.3 (1-3.5); Cholesterol 168 mg/dl (140-200); Estimated Glomerular Filt Rate 100 ml/min (>60); GFR (African American) 121 ML/MIN (>60); Glucose 120 mg/dl (74-100); HDL Cholesterol 32 mg/dl (40-60); Potassium 4.4 mmoL/L (3.5-5.1); Sodium 139 mmol/L (136-145); Total Protein,Serum 7.5 g/dl (6.3-8.2); Triglycerides 217 mg/dl (30-150); VLDL Cholesterol 43 mg/dL (0-40)
[2024-05-02 19:00] LABS: Direct LDL Cholesterol 100.62 mg/dL (100-129)
[2024-05-02 19:19] LABS: Prostate Specific Ag Screen 0.3 ng/ml (0.0-4.0)
== END 2024-05-02 23:59 | disposition home or self-care (01) ==
LOC: LAB.DROPOF 05-05 12:29
PROVIDERS: PCP Family Medicine; Visit Provider Family Medicine
DX: E78.5 Hyperlipidemia, unspecified (principal); N41.0 Acute prostatitis
CPT/HCPCS: 80053; 80061; G0103

== ENCOUNTER 2024-06-23 10:24 | Outpatient (CLI) | payer OTHER, SELFPAY ==
--- NOTE | 2024-06-23 10:24 | XR_ITS ---
FINAL REPORT CLINICAL HISTORY: UTI COMPARISON: None FINDINGS: A single supine view of the abdomen was obtained. There is no prior for comparison. The bowel gas pattern is normal. There are no pathologic calcifications. Osseous structures are within normal limits. IMPRESSION: No radiographic evidence of acute intra-abdominal abnormality. Reviewed, Interpreted and Dictated by Nancy Florez MD Transcribed by Eryn Lerma Authenticated and [facility]
--- NOTE | 2024-06-23 10:24 | US_ITS ---
FINAL REPORT CLINICAL HISTORY: urinary frequency COMPARISON: None FINDINGS: RENAL ULTRASOUND Ultrasound images of the kidneys were obtained. Note is made of fatty infiltration of the liver. The spleen is borderline in size measuring 13.0 cm. The right kidney measures 12.4 cm in length. No hydronephrosis, mass, or stone. The left kidney measures 12.6 cm in length. No hydronephrosis, mass, or stone. IMPRESSION: Morphologically normal kidneys. Reviewed, Interpreted and Dictated by Nancy Florez MD Transcribed by Ellyn Tello Authenticated and [facility] [place] [place]
--- NOTE | 2024-06-23 10:24 | US_ITS ---
FINAL REPORT CLINICAL HISTORY: UTI -- urinary frequency COMPARISON: None FINDINGS: ULTRASOUND BLADDER WITH POST VOID RESIDUAL Bladder volumes were estimated based on 3 dimensional measurements, pre- and postvoid. The bladder is incompletely distended. Prevoid volume is 45 mL. Postvoid imaging demonstrates no significant residual. IMPRESSION: Incompletely distended urinary bladder with no postvoid residual. Reviewed, Interpreted and Dictated by Nancy Florez MD Transcribed by Ellyn Tello Authenticated and [facility]
== END 2024-06-23 23:59 | disposition home or self-care (01) ==
LOC: RAD 10:24
PROVIDERS: PCP Family Medicine; Visit Provider Urology
DX: R35.0 Frequency of micturition (principal); R33.9 Retention of urine, unspecified
CPT/HCPCS: 74018; 76770; 76857

== ENCOUNTER 2025-01-28 10:10 | Outpatient (CLI) | payer OTHER, SELFPAY ==
[2025-01-28 18:20] LABS: Basophils # 0.1 K/mm3 (0-0.2); Basophils % 0.8 % (0.1-2.0); Eosinophils # 0.3 Kmm3 (0.0-0.4); Eosinophils % 4.3 % (0.1-12.0); Hematocrit 45.7 % (42.0-52.0); Hemoglobin 15.8 g/dL (14.1-18.0); Lymphocytes # 3.5 K/mm3 (0.7-4.5); Lymphocytes % 45.4 % (10-50); Mean Corpuscular HGB Conc 34.6 g/dL (31.8-35.4); Mean Corpuscular Hemoglobin 30.6 pg (27.0-31.2); Mean Corpuscular Volume 88.4 fl (80-94); Mean Platelet Volume 10.5 fl (7.4-10.4); Monocytes # 0.7 K/mm3 (0.1-1.0); Monocytes % 8.6 % (1.7-9.3); Neutrophils # 3.2 K/mm3 (1.8-7.8); Neutrophils % 40.6 % (37.0-80.0); Nucleated Red Blood Cells # 0 10^3/uL; Nucleated Red Blood Cells % 0 %; Platelet Count 351 K/mm3 (142-424); Red Blood Count 5.17 M/mm3 (4.60-6.20); Red Cell Distribution Width 12.6 % (11.5-17.5); Red Cell Distribution Width-SD 41.2 fL; White Blood Count 7.8 K/mm3 (4.8-10.8)
[2025-01-28 18:44] LABS: Alanine Aminotransferase 50 U/L (12-78); Albumin Level 4.1 g/dl (3.5-5.0); Albumin/Globulin Ratio 1.5 (1.1-1.8); Alkaline Phosphatase 55 U/L (38-126); Anion Gap 14.2 mEq/L (5-15); Aspartate Amino Transferase 33 U/L (17-59); Bilirubin,Total 0.4 mg/dl (0.2-1.3); Blood Urea Nitrogen 11 mg/dl (9-20); Calcium 9.6 mg/dl (8.4-10.2); Carbon Dioxide 27 mmol/L (22.0-30.0); Chloride 101 mmol/L (98-107); Chol/HDL Ratio 6.2 (1-3.5); Cholesterol 181 mg/dl (140-200); Estimated Glomerular Filt Rate 114 ml/min (>60); GFR (African American) 138 ML/MIN (>60); Globulin 2.8 g/dL (1.3-3.2); Glucose 141 mg/dl (74-100); HDL Cholesterol 29 mg/dl (40-60); Potassium 4.2 mmoL/L (3.5-5.1); Sodium 138 mmol/L (136-145); Total Protein,Serum 6.9 g/dl (6.3-8.2)
[2025-01-28 18:49] LABS: Triglycerides 468 mg/dl (30-150)
[2025-01-28 18:55] LABS: Microalbumin/Creatinine Ratio 6.8
[2025-01-28 19:00] LABS: Direct LDL Cholesterol 99.96 mg/dL (100-129)
[2025-01-28 19:02] LABS: Creatinine,Urine Random 235 mg/dL (Not Estab.)
[2025-01-28 19:09] LABS: 25-OH Vitamin D, Total 30.4 ng/mL (30-100)
[2025-01-28 19:19] LABS: Thyroid Stimulating Hormone 3.56 uIU/mL (0.465-4.68)
[2025-01-28 19:36] LABS: Hemoglobin A1C 6.1 % (4.0-6.0)
== END 2025-01-28 23:59 | disposition home or self-care (01) ==
LOC: LAB.DROPOF 01-29 09:34
PROVIDERS: PCP Family Medicine; Visit Provider Family Medicine
DX: R73.03 Prediabetes (principal); E66.9 Obesity, unspecified; Z68.35 Body mass index [BMI] 35.0-35.9, adult
CPT/HCPCS: 80053; 80061; 82043; 82306; 82570; 83036; 84443; 85025

== ENCOUNTER 2025-02-10 08:08 | Outpatient (CLI) | payer OTHER, SELFPAY ==
--- NOTE | 2025-02-10 08:30 | MR_ITS ---
FINAL REPORT TECHNIQUE: Multiplanar and multisequence imaging of the brain was obtained before and after contrast administration. CLINICAL HISTORY: dizziness, chronic headaches COMPARISON: None FINDINGS: Brain parenchymal: There is no mass effect or midline shift. There are no areas of abnormal signal intensity.The cerebellum and brainstem are without acute abnormality. Ventricles: The ventricles are symmetric in size and configuration without hydrocephalus. Extra-axial spaces: No extra-axial fluid collections. Diffusion imaging: No areas of restricted diffusion to suggest acute infarct. Flow voids: Flow voids within the major intracranial vessels are preserved. Soft tissues: Soft tissues are without acute abnormality. Sinuses: Mild mucoperiosteal thickening in the maxillary and ethmoid sinuses is noted, as well as signal in the right mastoid air cells that may represent fluid or chronic soft tissue thickening. Post contrast imaging: No abnormal enhancement. IMPRESSION: No acute intracranial abnormality and no pathologic contrast enhancement. Reviewed, Interpreted and Dictated by Nancy Florez MD Transcribed by Eryn Lerma Authenticated and [facility]
[2025-02-10] MEDS: GADOTERIDOL INJ 10ML SYRINGE 3 ML IV (09:17)
[2025-02-10] MEDS: SODIUM CHLORIDE 0.9% 10ML SYR (RAD ONLY) 10 ML IV (09:17)
[2025-02-10] MEDS: GADOTERIDOL INJ 20ML SYRINGE 20 ML IV (09:17)
== END 2025-02-10 23:59 | disposition home or self-care (01) ==
LOC: RAD 08:10
PROVIDERS: PCP Family Medicine; Visit Provider Family Medicine
DX: R51.9 Headache, unspecified (principal); G89.29 Other chronic pain; R42 Dizziness and giddiness; R26.89 Other abnormalities of gait and mobility
CPT/HCPCS: 70553; A9576

== ENCOUNTER → 2025-06-16 20:09 | Outpatient (CLI) | payer OTHER, SELFPAY ==
--- OUTSIDE RECORDS SUMMARY | 2025-06-16 20:12 | XMS_ITS | Clinical Summary ---
Author Organization [facility] Address [address] [place] [address] Care Team Providers Care Lasting Machine Operator Bed Name Role Phone Anne Nigel Primary Care Provider Unavailabl e Allergies No known active allergies Medications propranolol (Inderal) 10 MG tabletIndication s:Hypertension Take 10 mg by mouth 2 (two) times a day. Active escitalopram (Lexapro) 10 MG tablet Take 10 mg by mouth 1 (one) time each day. 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 05/09/2021 Hyperopia of left eye 05/09/2021 Myopia of right eye 05/09/2021 History of strabismus surgery 05/09/2021 Family History Medical History Relation Name Comments Blindness Brother Diabetes Maternal Grandmother Relation Name Status Comments Brother Maternal Grandmother Social History Tobacco Use Types Packs/Day Years Used Date Smoking Tobacco: Never Assessed Sex and Gender Information Value Date Recorded Sex Assigned at Not on file Legal Sex Male 10:45 AM EDT Gender Identity Not on file Sexual Orientation Not on file Plan of Treatment Health Maintenance Due Date Last Done Comments [facility]-Depression Screening 1995 [facility]-/Child/Adol SDOH Screenings 1995 [facility]-Varicella Vaccines (1 of 2 - 13+ 2-dose series) 02/13/2008 [facility]- SDOH Screenings 2013 [facility]-Adult SDOH Screenings 2013 [facility]-Hepatitis B Vaccines (1 of 3 - 19+ 3-dose series) 2014 [facility]-DTaP,Tdap,and Td Vaccines (3 - Td or Tdap) 08/31/2018 08/31/2008, 07/02/2007 HPV Vaccines (1 - 3-dose SCDM series) 2022 [id number] Vaccine (1 - 2023- season) 2024 [facility]-Influenza Vaccine (#1) 2025 [facility]-Zoster Vaccines (1 of 2) 2045 [facility]-HIB Vaccines Aged Out No longer e ligible based on patient's age to complete this topic [facility]-Hepatitis A Vaccines Aged Out No longer eligible based on patient's age to complete this topic [facility]-IPV Vaccines Aged Out No longer e ligible based on patient's age to complete this topic [facility]-Pneumococcal Vaccine: Pediatrics (0 to 5 Years) and At-Risk Patients (6 to 49 Years) Aged Out No longer eligible b ased on patient's age to complete this topic [facility]-Rotavirus Vaccines Aged Out No lo nger eligible based on patient's age to complete this topic Insurance [facility] MEDICAID Care Teams Lasting Machine Operator Bed Relationship Specialty Start Date End Date Nigel Rodríguez PCP - General 05/09/21
== END ==
LOC: SL 20:11
PROVIDERS: PCP Family Medicine; Visit Provider Family Medicine
DX: G47.33 Obstructive sleep apnea (adult) (pediatric) (principal); G47.61 Periodic limb movement disorder; R40.0 Somnolence; R53.83 Other fatigue
CPT/HCPCS: 95810

== ENCOUNTER 2025-06-29 09:54 | Outpatient (CLI) | payer OTHER, SELFPAY ==
--- OUTSIDE RECORDS SUMMARY | 2025-06-29 10:13 | XMS_ITS | Clinical Summary ---
Author Organization [facility] Address [address] [place] [address] Care Team Providers Care Information Architect Name Role Phone AnneGus pachecoe Primary Care Provider Unavailabl e Allergies No [...] eye 05/09/2021 Myopia of right eye 05/09/2021 Resolved Problems Problem Noted Date Diagnosed Date Resolved Date History of strabismus surgery 05/09/2021 06/28/2025 Family History Medical History Relation Name Comments [...] Vaccines (1 - 3-dose SCDM series) 2022 [id number] Vaccine (1 - season) 2025 [facility]-Influenza Vaccine (#1) 2025 [facility]-Zoster Vaccines (1 [...] patient's age to complete this topic Insurance LJALDO [id number] [employer] [facility] MEDICAID Care Teams Information Architect Relationship Specialty Start Date End Date Nigel Rodríguez PCP - General 05/09/21
[2025-06-29] MEDS: ALBUTEROL 0.083% 2.5 MG/3 ML NEB IH (10:42)
--- NOTE | 2025-06-29 10:43 | PC.NURSE ---
PFT completed without incident, Albuterol 0.083% given via HHN, per written protocol, Pt tolerated tx well.
== END 2025-06-29 23:59 | disposition home or self-care (01) ==
LOC: RT 09:54
PROVIDERS: PCP Family Medicine; Visit Provider Specialist
DX: J45.909 Unspecified asthma, uncomplicated (principal)
CPT/HCPCS: 94010; 94727; 94729

== ENCOUNTER 2025-08-17 09:58 | Outpatient (RCR) | payer OTHER, SELFPAY ==
--- NOTE | 2025-08-17 11:07 | HMH.PTOPEV ---
PT Evaluation Rehab PT Outpatient Evaluation Start: 08/17/25 10:47 Freq: Status: Active Protocol: Document 08/17/25 10:48 PHORPAPITO (Rec: 08/17/25 11:07 PHORNE [id number]) E-signed By Ramin Godinez, PT Outpatient Therapy Subjective History Subjective History This is the initial PT eval for Gordy Muniz, 30 yowm who presents with c/o vertigo and dizziness x ~ 6 yrs. He reports, I had a really bad case of COVID-19 and a double ear infection and my R ear even bled a little. Since then I've had this dizziness and spinning feeling most of the time. He reports medication he is taking now helps his symptoms significantly, but they are not completely gone. He reports episodes last 30 mins to 3- 4 hours at a time and can happen at any time of day or in any body position. He reports high pitched sounds, increased vibrations, or any type of movement (riding in a car especially) will increase his symptoms. He has significant PMH of Autism/Asperger disorder, depression, anxiety, legally blind with L eye significantly worse than R, chronic sinus issues, and hx of multiple prior COVID-19 infections. MRI of the brain ~ 6 mos ago showed no significant intercranial processes. Chief Complaint Other Symptom Type Other Symptoms Relieved By Prescription Meds Symptoms Aggravated Physical Activity By Prior Functional Balance Limitations Current Functional Recreation Activity,Balance Limitations Symptom Description Intermittent Vertigo Eval Oculomotor Examination Smooth Pursuits: Normal Saccades: Normal Gaze-Evoked Absent Nystagmus: Vergence: Abnormal Comment: Difficult assessment due to pr underlying L eye amblyopia. GEN testing did produce minimal symptoms, but no nystagmus. Vestibular-Ocular Reflex (VOR) VOR Horizontal: Impaired VOR Vertical: Impaired Comment: Increased symptoms with any head movements during VOR testing. Motion Sensitivity Testing Symptoms Provoked By Turning head quickly : Positional Testing Montgomery-Hallpike Right: Negative Montgomery-Hallpike Left: Negative Roll Test Right: Negative Roll Test Left: Negative Gait Assessment Assistive Device: None Gait Quality Normal Outpatient Therapy Assessment Impairments Problems/ Impaired Driving,Impaired Household Care,Impaired Impairmments Recreational Activities,Impaired Balance,Impaired Self Care/Self Management Prognosis Rehab Potential Innapropriate for Skilled Therapy Comment Currently there is no need for skilled outpatient therapy services due to the complex nature of patient dizziness and vertigo. He was instructed in a home program for habituation exercises he could try to decrease some of his symptoms. Clinical Impression Consistent with Yes Diagnosis PT Patient Goals PT Patient Goals PT Short Term No goals needed at this time. Patient Goals Outpatient Therapy Plan of Care Treatment Plan May Include Eval/Re-Eval Yes Frequency Times per week 0 Duration Number of Weeks 0 Addendums This patient is a No candidate for social or vocational rehab ? Patient/Guardian Yes verbally acknowledges understanding of treatment program and consents to further treatment? Patient/Guardian Yes verbally acknowledges understanding of diagnosis, prognosis and goals for treatment? Eval Complexity PT Charges 87427 - High Complexity Shoulder/Elbow Eval Shoulder Objective Measurements Elbow Objective Measurements PHYSICIAN CERTIFICATION: I certify the specified therapy services for Gordy Muniz are required, authorized, and reviewed every 30 days.
== END 2025-08-17 23:59 | disposition home or self-care (01) ==
LOC: PT 09:58
PROVIDERS: PCP Family Medicine; Visit Provider Specialist
DX: R42 Dizziness and giddiness (principal)
CPT/HCPCS: 97163

== ENCOUNTER 2025-08-20 15:33 | Emergency (ER) | payer OTHER, SELFPAY ==
[2025-08-20] VITALS (7 sets, daily range): BP systolic 135–157; BP diastolic 80–92; PULSE 60–65; RESP 18; TEMP 36.6; O2SAT 95–97; BMI 36.9
--- OUTSIDE RECORDS SUMMARY | 2025-08-20 16:08 | XMS_ITS | Clinical Summary ---
Author Organization [facility] Address [address] [place] [address] Care Team Providers Care Gusset Ripper Name Role Phone AnneGus pachecoe Primary Care [...] Date Last Done Comments [facility]-Depression Screening 1995 [facility]-Infant/Child/Adol SDOH Screenings 1995 [facility]-Varicella Vaccines (1 of 2 - 13+ 2-dose series) 02/13/2008 [facility]- SDOH Screenings 2013 [facility]-Adult SDOH Screenings 2013 [facility]-Hepatitis B Vaccines (1 of 3 - 19+ 3-dose series) 2014 [facility]-DTaP,Tdap,and Td Vaccines (3 - Td or Tdap) 08/31/2018 08/31/2008, 07/02/2007 HPV Vaccines (1 - 3-dose SCDM series) 2022 [id number] Vaccine (1 - season) 2025 [facility]-Influenza Vaccine [...] age to complete this topic Insurance LJALDO [id number] [employer] [facility] MEDICAID Care Teams Gusset Ripper Relationship Specialty Start Date End Date Nigel Rodríguez PCP - General 05/09/21
--- NOTE | 2025-08-20 16:10 | HMH.EDGENADL ---
Discharge Plan Disposition Patient Disposition: Home, Self-Care Condition: Good Prescriptions Prescriptions: No Action atorvastatin 10 mg tablet See Rx Instructions .ROUTE .COMPLEX Qty: 90 3RF Dose Instruction: TAKE 1 TABLET BY MOUTH AT BEDTIME NIGHTLY FOR ELEVATED CHOLESTEROL Rx Instructions: TAKE 1 TABLET BY MOUTH AT BEDTIME NIGHTLY FOR ELEVATED CHOLESTEROL escitalopram oxalate 20 mg tablet See Rx Instructions .ROUTE .COMPLEX Qty: 90 1RF Dose Instruction: TAKE 1 TABLET BY MOUTH ONCE DAILY Rx Instructions: TAKE 1 TABLET BY MOUTH ONCE DAILY rizatriptan 10 mg tablet,disintegrating See Rx Instructions PO .COMPLEX Qty: 10 2RF Rx Instructions: take 1 tab at onset of headache; if no relief may repeat 1 tab after at least 2 hrs; max = 4 per week tamsulosin 0.4 mg capsule See Rx Instructions .ROUTE .COMPLEX Qty: 90 1RF Dose Instruction: TAKE 1 CAPSULE BY MOUTH ONCE DAILY Rx Instructions: TAKE 1 CAPSULE BY MOUTH ONCE DAILY celecoxib 200 mg capsule See Rx Instructions .ROUTE .COMPLEX Qty: 30 1RF Dose Instruction: TAKE 1 CAPSULE BY MOUTH ONCE DAILY NEEDED FOR PAIN Rx Instructions: TAKE 1 CAPSULE BY MOUTH ONCE DAILY NEEDED FOR PAIN ergocalciferol (vitamin D2) [Vitamin D2] 1,250 mcg (50,000 unit) capsule See Rx Instructions .ROUTE .COMPLEX Qty: 12 0RF Dose Instruction: TAKE 1 CAPSULE BY MOUTH ONCE WEEKLY FOR VITAMIN DEFICEINCY Rx Instructions: TAKE 1 CAPSULE BY MOUTH ONCE WEEKLY FOR VITAMIN DEFICEINCY propranolol 40 mg tablet See Rx Instructions .ROUTE .COMPLEX Qty: 60 1RF Dose Instruction: TAKE 1 TABLET BY MOUTH TWICE DAILY Rx Instructions: TAKE 1 TABLET BY MOUTH TWICE DAILY metformin 500 mg tablet See Rx Instructions .ROUTE .COMPLEX Qty: 90 1RF Dose Instruction: TAKE 1 TABLET BY MOUTH ONCE DAILY Rx Instructions: TAKE 1 TABLET BY MOUTH ONCE DAILY meclizine 25 mg tablet,chewable See Rx Instructions .ROUTE .COMPLEX Qty: 120 0RF Dose Instruction: TAKE TWO (2) TABLETS BY MOUTH TWICE DAILY NEEDED FOR DIZZINESS Rx Instructions: TAKE TWO (2) TABLETS BY MOUTH TWICE DAILY NEEDED FOR DIZZINESS Referrals Follow up/Referrals: Adri Weir APRN [Primary Care Provider, Family Practice] - See instructions Activity Restrictions/Add. Instructions Additional Instructions/Restrictions: You have mild pancreatitis which will resolve on its own. You can take Tylenol and Motrin in addition to the Bentyl which I have sent to. You do have some inflamed lymph nodes in your abdomen which you should follow-up with your primary care provider for. Return to the ER for any acute or worsening symptoms. Clinical Impressions Clinical Impression: Pancreatitis, Enteritis, Acute mesenteric lymphadenitis Instructions Patient Instructions: DI for Acute Abdominal Pain Print Language Print Language: Wallisian Discharge ED Provider: Hali Adan General Adult HPI General Chief complaint: Abdominal Pain Stated complaint: abdominal pain Time Seen by Provider: 08/20/25 16:07 History of Present Illness HPI narrative: Patient is a 30-year-old male with no significant past medical history who presented to the emergency department with abdominal pain. Patient states that his symptoms are in his upper abdomen but does radiate into his lower abdomen. Patient states that his symptoms started today. Patient reports nausea but no vomiting. Patient denies any diarrhea. Patient denies any fevers. Patient has not had any chest pain or shortness of breath. Patient has not had any upper respiratory symptoms. Patient denies any abdominal surgeries. Patient does not drink any alcohol or do any drugs. Related Data Previous Rx's ?Medication ?Instructions ?Recorded atorvastatin 10 mg tablet See Rx Instructions .Route 05/04/25 .COMPLEX #90 ea escitalopram oxalate 20 mg tablet See Rx Instructions .Route 05/04/25 .COMPLEX #90 tabs rizatriptan 10 mg disintegrating See Rx Instructions PO .COMPLEX 06/10/25 tablet #10 tabs tamsulosin 0.4 mg capsule See Rx Instructions .Route 06/29/25 .COMPLEX #90 caps celecoxib 200 mg capsule See Rx Instructions .Route 07/20/25 .COMPLEX #30 caps ergocalciferol (vitamin D2) 1,250 See Rx Instructions .Route 07/20/25 mcg (50,000 unit) capsule (Vitamin .COMPLEX #12 caps D2) propranolol 40 mg tablet See Rx Instructions .Route 07/23/25 .COMPLEX #60 tabs metformin 500 mg tablet See Rx Instructions .Route 07/29/25 .COMPLEX #90 tabs meclizine 25 mg chewable tablet See Rx Instructions .Route 08/05/25 .COMPLEX #120 tabs Allergies Allergy/AdvReac Type Severity Reaction Status Date / Time No Known Allergies Allergy Verified 08/18/25 13:37 [facility] Disclaimer: The information contained in this section may have been updated after the patient was seen, as this information can be updated by other users. Medical History Legally blind Congenital exophoria OS, legally blind. History of multiple eye surgeries in the past Hyperglycemia A1c hemoglobin 6.2 Asperger syndrome Depression Cat bite of finger Atypical chest pain Enteritis due to Norovirus COVID-19 Strep sore throat Otitis media Major depressive disorder Generalized anxiety disorder Legally blind in left eye, as defined in [place] Surgical History History of eye surgery on the left eye History of left knee surgery Family History Mother FHx: mental illness -depression Substance abuse Aneurysm Sister FHx: mental illness -bipolar Substance abuse Father Alcoholism Brother FHx: mental illness -schizophrenia -anger Grandmother Aneurysm Diabetes Social History Smoking Status: Never smoker second hand exposure: No alcohol intake: current alcohol intake frequency: holidays/special occasions only counseling given: No substance use type: denies use counseling given: No current occupational status: unemployed Travel in the last 8 weeks?: None adopted: No caregiver/support person: No foster care: No household members: family housing: house lives independently: No marital status: single number of children: 0 number of grandchildren: 0 education level: high school Hx Recent Travel: No sexually active: No caffeine: Yes physical activity: none lorri/sikhism: None special lorri needs: No working smoke detector in home: Yes fire extinguisher in home: No carbon monox detector in home: No firearms in home: Yes firearms unloaded and locked: Yes do you feel safe at home: Yes victim of physical abuse: No victim of emotional abuse: No victim of sexual abuse: No would you like helpful sources: No Have you lived/traveled outside [place] in past 30 days?: No Contact w/someone who lives/traveled outside US past 30 days?: No Exposure to someone with infectious disease in past 14 days?: No Do you have a fever (greater than 100.4 F or 38 C)?: No Have you tested positive for COVID-19?: No Exposed to someone with COVID-19 in past 14 days?: No Do you have a sore throat?: No Do you have a cough?: No Do you have any weakness?: No Do you have any diarrhea?: No Are you experiencing any unusual bleeding?: No Do you have any muscle aches/pain?: No Do you have any abdominal pain?: No Are you experiencing loss of taste or smell?: No Other Medical History Have you received the Flu Vaccine for this season: No Have you received the Pneumonia Vaccine: No ROS Obtained: Yes All systems reviewed & no additional complaints except as documented and Yes Systems reviewed as appropriate & no additional complaints except as documented Physical Exam General General appearance: alert and in no apparent distress Head Head exam: atraumatic, normocephalic and normal inspection Eye Eye exam: Present normal appearance, PERRL and EOMI; Absent scleral icterus ENT ENT exam: Present normal exam and normal external ear exam Neck Neck exam: Present normal inspection and full ROM Chest Chest inspection: Present normal inspection and symmetric chest wall rise Respiratory Respiratory exam: Present normal lung sounds bilaterally; Absent respiratory distress or wheezes Cardiovascular Cardiovascular exam: Present regular rate, normal rhythm and normal heart sounds Abdominal Exam Abdominal exam: Present soft, distention and tenderness (epigastric tenderness); Absent guarding or rebound Extremities Exam Extremities exam: Present normal inspection and full ROM Back Exam Back exam: Present normal inspection and full ROM Neurological Exam Neurological exam: Present alert and oriented X3 Psychiatric Psychiatric exam: Present normal affect and normal mood Skin Skin exam: Present warm and dry Medical Decision Making Medical Records Medical records reviewed: Yes I reviewed the patient's medical records. Screening: Per USPSTF and CDC recommendations, given the prevalence of disease in our region, it is our hospital?s policy to screen for HIV and viral Hepatitis for all patients aged 18 and over and those with ongoing risk factors. Saurabh Inquiry Pt receiving controlled substance: No Vital Signs: 08/20/25 16:00 08/20/25 16:00 08/20/25 16:30 Temperature 97.9 F 97.9 F Temperature Source Oral Oral Pulse Rate 60 Pulse Rate [Right] 60 Respiratory Rate 18 18 Blood Pressure 157/86 H 156/85 H Blood Pressure [Right Arm] 157/86 H Blood Pressure Mean 106 Blood Pressure Mean [Right Arm] 109 Blood Pressure Source Automatic Cuff Blood Pressure Source [Right Arm] Automatic Cuff Blood Pressure Position Supine Blood Pressure Position [Right Arm] Supine 02 Sat by Pulse Oximetry 95 95 Oxygen Delivery Method Room Air Room Air 08/20/25 16:53 08/20/25 17:01 08/20/25 17:30 Temperature Temperature Source Pulse Rate Pulse Rate [Right] Respiratory Rate Blood Pressure 152/92 H 144/81 H 156/80 H Blood Pressure [Right Arm] Blood Pressure Mean 116 110 105 Blood Pressure Mean [Right Arm] Blood Pressure Source Blood Pressure Source [Right Arm] Blood Pressure Position Blood Pressure Position [Right Arm] 02 Sat by Pulse Oximetry Oxygen Delivery Method 08/20/25 18:01 08/20/25 19:03 Temperature 98 F Temperature Source Oral Pulse Rate 65 Pulse Rate [Right] Respiratory Rate 18 Blood Pressure 135/85 149/87 H Blood Pressure [Right Arm] Blood Pressure Mean 98 Blood Pressure Mean [Right Arm] Blood Pressure Source Automatic Cuff Blood Pressure Source [Right Arm] Blood Pressure Position Supine Blood Pressure Position [Right Arm] 02 Sat by Pulse Oximetry Oxygen Delivery Method Room Air Lab Data Lab results reviewed: Yes I reviewed the patient's lab results. Lab Results 08/20/25 16:18: WBC 8.5, RBC 4.91, Hgb 15.0, Hct 43.4, MCV 88.4, MCH 30.5, MCHC 34.6, RDW 11.9, Plt Count 378, MPV 9.6, Neut % (Auto) 39.9, Lymph % (Auto) 44.0, [place] % (Auto) 9.1, Eos % (Auto) 5.4, Baso % (Auto) 0.8, Neut # (Auto) 3.4, Lymph # (Auto) 3.7, [place] # (Auto) 0.8, Eos # (Auto) 0.5 H, Baso # (Auto) 0.1, Sodium 136, Potassium 4.1, Chloride 103, Carbon Dioxide 27, Anion Gap 10.1, BUN 12, Creatinine 0.90, Estimated Creat Clear 204, Estimated GFR 99, Est GFR ( Amer) 120, Glucose 171 H, Lactate 1.4, Calcium 9.2, Total Bilirubin 0.5, AST 43, ALT 107 H, Alkaline Phosphatase 60, Total Protein 7.2, Albumin 4.5, Globulin 2.7, Albumin/Globulin Ratio 1.7, Lipase 308 H, HCV Ab GINA w/Rflx PCR Qn Negative, HIV Ag/Ab Combo Qual Negative 08/20/25 16:18 08/20/25 16:18 Orders (Tests/Meds): ED MEDICATIONS Discontinued Medications Generic Name Dose Route Start Last Admin Trade Name Luis PRN Reason Stop Dose Admin Belladonna Alkaloids 60 ml 08/20/25 16:19 08/20/25 16:29 Belladonna Alkaloids 60 Ml Ml PO 08/20/25 16:20 60 ml ONCE ONE Administration Iopamidol 75 ml 08/20/25 17:38 08/20/25 17:40 Iopamidol-370 (76%);100ml Bottle IV 08/20/25 17:39 75 ml ONCE ONE Administration Ketorolac Tromethamine 30 mg 08/20/25 16:19 08/20/25 16:32 Ketorolac 30mg/Ml Vial IV 08/20/25 16:20 30 mg ONCE ONE Administration Sodium Chloride 10 ml 08/20/25 17:38 Sodium Chloride 0.9% 10ml Syr (Rad Only) IV 09/19/25 17:37 NEEDED PRN Maintain IV Site ORDERS Category Date Time Status CT abdomen pelvis w con Stat Cat Scan 08/20/25 16:19 Completed POCUS Point of Care (ER Only) Stat Exams 08/20/25 18:41 Completed CBC w/Auto Diff [Complete Blood Count Auto Diff] Stat Lab 08/20/25 16:18 Completed CMP [Comprehensive Metabolic Panel] Stat Lab 08/20/25 16:18 Completed HIV Combo Stat Lab 08/20/25 16:18 Completed Hepatitis C Ab Qual. W/ RFX Stat Lab 08/20/25 16:18 Completed Lactic Acid Stat Lab 08/20/25 16:18 Completed Lipase Stat Lab 08/20/25 16:18 Completed Medical Decision Narrative: Patient is an otherwise healthy 30-year-old male who presented to the emergency department with abdominal pain. On arrival, patient was hemodynamically stable with unremarkable vital signs. Differential includes but not limited to: Appendicitis, gallbladder disease, pancreatitis, gastroenteritis, amongst others. Patient was given medications for symptom control here in the emergency department. Labs were obtained as well as CT scan. Patient's labs were reviewed and interpreted by myself: CBC showed no leukocytosis, hemoglobin was stable. CMP was unremarkable. Lipase was mildly elevated at 308. LFTs were unremarkable. CT scan of the abdomen was reviewed and interpreted by myself and showed no acute pathology. There was some mesenteric lymphadenopathy that I discussed with the patient and told him that he needed to follow-up for. Given patient's mildly elevated lipase, bedside ultrasound was performed, patient showed no evidence of gallstones or evidence of cholecystitis at this time. Was given return precautions, recommendations for mild pancreatitis and patient was discharged home in stable condition return precautions were discussed. Patient's pain was well-controlled and patient was able to tolerate oral intake in the emergency department. Critical Care Critical Care Time Critical Care Time: No
--- NOTE | 2025-08-20 16:19 | CT_ITS ---
PROCEDURE INFORMATION: Exam: CT Abdomen And Pelvis With Contrast Exam date and time: 08/20/2025 5:39 PM Age: 30 years old Clinical indication: Abdominal pain; Additional info: Abdominal tenderness TECHNIQUE: Imaging protocol: Computed tomography of the abdomen and pelvis with contrast. Radiation optimization: All CT scans at this facility use at least one of these dose optimization techniques: automated exposure control; mA and/or kV adjustment per patient size (includes targeted exams where dose is matched to clinical indication); or iterative reconstruction. Contrast material: ISOVUE; Contrast volume: 75 ml; Contrast route: IV; COMPARISON: CT ABDOMEN PELVIS W CON 10/03/2021 12:34 AM FINDINGS: Liver: No suspicious mass. Gallbladder and biliary ducts: No calcified stones. No ductal dilation. Pancreas: No ductal dilation. No peripancreatic inflammatory changes. Spleen: Unremarkable. Adrenal glands: No mass. Kidneys and ureters: No hydronephrosis. Unremarkable renogram. Stomach and bowel: Nonobstructive bowel gas pattern. Evaluation of gastrointestinal tract is limited due to lack of oral contrast. Appendix: No CT evidence of acute appendicitis. Intraperitoneal space: No evidence of pneumoperitoneum. Vasculature: No abdominal aortic aneurysm. Lymph nodes: Slight interval increase in mild mesenteric lymphadenopathy, indeterminate. Urinary bladder: Fluid in the urinary bladder. Reproductive: The prostate is present. Bones/joints: No suspicious osseous lesion. No acute fracture. Soft tissues: Moderate-sized bilateral fat containing inguinal hernia. IMPRESSION: 1. Nonobstructive bowel gas pattern. 2. Slight interval increase in mild mesenteric lymphadenopathy, indeterminate. Recommend 3 month imaging follow-up unless clinically indicated earlier.
[2025-08-20] MEDS: BELLADONNA ALKALOIDS 60 ML ML PO (16:29)
[2025-08-20] MEDS: KETOROLAC 30MG/ML VIAL 30 MG IV (16:32)
[2025-08-20 16:37] LABS: Hematocrit 43.4 % (42.0-52.0); Hemoglobin 15.0 g/dL (14.1-18.0); Immature Granulocytes % 0.8 %; Mean Corpuscular HGB Conc 34.6 g/dL (31.8-35.4); Mean Corpuscular Hemoglobin 30.5 pg (27.0-31.2); Mean Corpuscular Volume 88.4 fl (80-94); Nucleated Red Blood Cells % 0 %; Platelet Count 378 K/mm3 (142-424); Red Blood Count 4.91 M/mm3 (4.60-6.20); Red Cell Distribution Width-SD 38.3 fL; White Blood Count 8.5 K/mm3 (4.8-10.8)
[2025-08-20 17:04] LABS: Alanine Aminotransferase 107 U/L (12-78); Albumin Level 4.5 g/dl (3.5-5.0); Albumin/Globulin Ratio 1.7 (1.1-1.8); Alkaline Phosphatase 60 U/L (38-126); Anion Gap 10.1 mEq/L (5-15); Aspartate Amino Transferase 43 U/L (17-59); Bilirubin,Total 0.5 mg/dl (0.2-1.3); Blood Urea Nitrogen 12 mg/dl (9-20); Calcium 9.2 mg/dl (8.4-10.2); Carbon Dioxide 27 mmol/L (22.0-30.0); Chloride 103 mmol/L (98-107); Creatinine Clearance Estimated 204 mL/min (50-200); Creatinine,Serum 0.90 mg/dl (0.66-1.25); Estimated Glomerular Filt Rate 99 ml/min (>60); GFR (African American) 120 ML/MIN (>60); Globulin 2.7 g/dL (1.3-3.2); Glucose 171 mg/dl (74-100); Lipase 308 U/L (23-300); Potassium 4.1 mmoL/L (3.5-5.1); Sodium 136 mmol/L (136-145); Total Protein,Serum 7.2 g/dl (6.3-8.2)
[2025-08-20] MEDS: IOPAMIDOL-370 (76%);100ML BOTTLE 75 ML IV (17:40)
[2025-08-20 22:41] LABS: Hepatitis C Ab Qual. W/ RFX NEGATIVE (Negative)
== END 2025-08-20 19:08 | disposition home or self-care (01) ==
PROVIDERS: Emergency Provider Student in an Organized Health Care Education/Training Program; PCP Family Medicine
DX: K52.9 Noninfective gastroenteritis and colitis, unspecified (principal); K85.90 Acute pancreatitis without necrosis or infection, unspecified; I88.0 Nonspecific mesenteric lymphadenitis; G47.30 Sleep apnea, unspecified; G43.909 Migraine, unspecified, not intractable, without status migrainosus
CPT/HCPCS: 74177; 80053; 83605; 83690; 85025; 86803; 87389; 96374; 99285; J1885; Q9967

== ENCOUNTER 2025-08-26 12:50 | Outpatient (CLI) | payer OTHER, SELFPAY ==
--- NOTE | 2025-08-26 13:00 | MR_ITS ---
FINAL REPORT CLINICAL HISTORY: headache/visual disturbance loosing the ability to identify colors sx in the past on his eyes to correct eye muscles blurred vision COMPARISON: None FINDINGS: Multiplanar MR imaging of the orbits was performed without contrast. The globes are symmetric. The optic nerves appear intact. No intra or extra conal inflammation identified. The paranasal sinuses demonstrate normal signal voids. There is mild mucoperiosteal thickening in the frontal and maxillary sinuses. IMPRESSION: Mild frontal and maxillary sinusitis. Reviewed, Interpreted and Dictated by Alessio Rodriguez MD Transcribed by Ellyn Tello Authenticated and [facility]
--- OUTSIDE RECORDS SUMMARY | 2025-08-26 13:31 | XMS_ITS | Clinical Summary ---
Author Organization [facility] Address [address] [place] [address] Care Team Providers Care Editor In Chief Name Role Phone AnneGus pachecoe Primary Care [...] Vaccines (1 - 3-dose SCDM series) 2022 [id number] Vaccine (1 - 2024- season) 2025 [facility]-Influenza Vaccine (#1) 2025 [facility]-Zoster [...] age to complete this topic Insurance [id number] [employer] [facility] MEDICAID Care Teams Editor In Chief Relationship Specialty Start Date End Date Nigel Rodríguez PCP - General 05/09/21
== END 2025-08-26 23:59 | disposition home or self-care (01) ==
LOC: RAD 12:50
PROVIDERS: PCP Family Medicine; Visit Provider Specialist
DX: J32.1 Chronic frontal sinusitis (principal); J32.0 Chronic maxillary sinusitis; H54.8 Legal blindness, as defined in USA; R42 Dizziness and giddiness; R51.9 Headache, unspecified; G89.29 Other chronic pain; H53.9 Unspecified visual disturbance
CPT/HCPCS: 70540

== ENCOUNTER 2025-09-16 13:49 | Outpatient (CLI) | payer OTHER, SELFPAY ==
[2025-09-16 13:53] LABS: dRVVT Confirm ND
[2025-09-16 14:42] LABS: Hematocrit 46.6 % (42.0-52.0); Hemoglobin 15.8 g/dL (14.1-18.0); Immature Granulocytes % 0.1 %; Mean Corpuscular HGB Conc 33.9 g/dL (31.8-35.4); Mean Corpuscular Hemoglobin 29.8 pg (27.0-31.2); Mean Corpuscular Volume 87.8 fl (80-94); Nucleated Red Blood Cells % 0 %; Platelet Count 343 K/mm3 (142-424); Red Blood Count 5.31 M/mm3 (4.60-6.20); Red Cell Distribution Width-SD 38.5 fL; White Blood Count 6.7 K/mm3 (4.8-10.8)
[2025-09-16 15:07] LABS: Alanine Aminotransferase 60 U/L (12-78); Albumin Level 4.8 g/dl (3.5-5.0); Albumin/Globulin Ratio 1.8 (1.1-1.8); Alkaline Phosphatase 63 U/L (38-126); Amylase 56 U/L (30-110); Anion Gap 17.8 mEq/L (5-15); Aspartate Amino Transferase 35 U/L (17-59); Bilirubin,Total 0.7 mg/dl (0.2-1.3); Blood Urea Nitrogen 12 mg/dl (9-20); Calcium 9.6 mg/dl (8.4-10.2); Carbon Dioxide 27 mmol/L (22.0-30.0); Chloride 102 mmol/L (98-107); Creatinine,Serum 1.00 mg/dl (0.66-1.25); Estimated Glomerular Filt Rate 88 ml/min (>60); GFR (African American) 106 ML/MIN (>60); Globulin 2.6 g/dL (1.3-3.2); Glucose 140 mg/dl (74-100); Potassium 4.8 mmoL/L (3.5-5.1); Sodium 142 mmol/L (136-145); Total Protein,Serum 7.4 g/dl (6.3-8.2); Uric Acid 6.1 mg/dl (3.5-8.5)
[2025-09-16 15:13] LABS: C-Reactive Protein 2.6 mg/L (0-4)
[2025-09-16 15:45] LABS: 25-OH Vitamin D, Total 47.2 ng/mL (30-100)
[2025-09-16 15:57] LABS: Vitamin B12 360 pg/mL (239-931)
[2025-09-18 11:17] LABS: RA Latex Turbid. <10.0 IU/mL (<14.0)
[2025-09-18 17:35] LABS: Antinuclear Antibodies, IFA Negative (.)
== END 2025-09-16 23:59 | disposition home or self-care (01) ==
LOC: LAB 13:50
PROVIDERS: PCP Family Medicine; Visit Provider Family Medicine
DX: E55.9 Vitamin D deficiency, unspecified (principal); M19.90 Unspecified osteoarthritis, unspecified site; I88.0 Nonspecific mesenteric lymphadenitis; K52.9 Noninfective gastroenteritis and colitis, unspecified; K85.90 Acute pancreatitis without necrosis or infection, unspecified; Z82.0 Family history of epilepsy and other diseases of the nervous system; R20.0 Anesthesia of skin; R20.2 Paresthesia of skin; R42 Dizziness and giddiness; R51.9 Headache, unspecified; G89.29 Other chronic pain
CPT/HCPCS: 36415; 80053; 82150; 82306; 82607; 84550; 85025; 85613; 85651; 85732; 86038; 86140; 86225; 86235; 86431

== ENCOUNTER 2025-09-28 11:00 | Outpatient (CLI) | payer OTHER, SELFPAY ==
--- NOTE | 2025-09-28 11:05 | XR_ITS ---
FINAL REPORT CLINICAL HISTORY: pain states chronic knee pain COMPARISON: 01/26/2021 FINDINGS: Two views of the left knee were obtained. There is no acute fracture or dislocation. The joint spaces are well preserved. There is no acute soft tissue abnormality. IMPRESSION: No acute abnormality identified. Reviewed, Interpreted and Dictated by Maria Dolores Hightower MD Transcribed by Ellyn Tello Authenticated and [facility]
--- NOTE | 2025-09-28 11:05 | XR_ITS ---
FINAL REPORT CLINICAL HISTORY: knee pain states chronic knee pain FINDINGS: Two views of the right knee were obtained. There is no prior exam for comparison. There is a bipartite patella. There is no acute fracture or dislocation. The joint spaces are well preserved. No significant degenerative change. There is no acute soft tissue abnormality. IMPRESSION: No acute abnormality identified. Bipartite patella. Reviewed, Interpreted and Dictated by Maria Dolores Hightower MD Transcribed by Ellyn Tello Authenticated and [facility]
--- OUTSIDE RECORDS SUMMARY | 2025-09-28 11:05 | XMS_ITS | Clinical Summary ---
Author Organization [facility] Address [address] [place] [address] Care Team Providers Care Translator And Interpreter Name Role Phone AnneGus pachecoe Primary Care [...] - Td or Tdap) 08/31/2018 08/31/2008, 07/02/2007 [id number] Vaccine (1 - 2024-26 season) 2025 [facility]-Influenza Vaccine (#1) 2025 [facility]-Zoster Vaccines (1 of 2) 2045 HPV Vaccines (No Doses Required) Completed [facility]-HIB Vaccines Aged Out No longer e [...] patient's age to complete this topic Insurance LJ [id number] [id number] [employer] MEDICAID Care Teams Translator And Interpreter Relationship Specialty Start Date End Date Nigel Rodríguez PCP - General 05/09/21
== END 2025-09-28 23:59 ==
LOC: RAD 11:01
PROVIDERS: PCP Family Medicine; Visit Provider Family Medicine
DX: Q74.1 Congenital malformation of knee (principal); M25.562 Pain in left knee; G89.29 Other chronic pain
CPT/HCPCS: 73560